=== PATIENT | male | born 1990 | race Caucasian/White ===

== ENCOUNTER 2024-08-06 12:31 | Inpatient (IN) | payer SELFPAY ==
[~2024-08-06] VITALS: Ht 167.6 cm; Wt 108.6 kg
[2024-08-06 12:36] VITALS: O2SAT 99
[2024-08-06] MEDS: NALOXONE HCL 0.4MG/ML 1ML VIAL IV ONE (13:55)
[2024-08-06 14:26] LABS: BASOPHILS % 0.1 % (0.0-2.0); EOSINOPHILS % 0.3 % (0.0-5.0); HEMATOCRIT. 44.5 % (42.0-52.0); HEMOGLOBIN. 14.4 g/dL (14.0-18.0); LYMPHOCYTES % 8.7 % (20.0-50.0); MEAN CORPUSCULAR HEMOGLOBIN 29.7 pg (28.0-32.0); MEAN CORPUSCULAR HGB CONC 32.3 g/dL (31.0-37.0); MEAN PLATELET VOLUME 8.2 fl (7.4-10.4); MONOCYTES % 4.9 % (2.0-8.0); PLATELET 278 x1000/uL (130-400); RED BLOOD CELL COUNT 4.84 mill/uL (4.7-6.1); RED CELL DISTRIBUTION WIDTH 13.5 % (11.6-14.6); WHITE BLOOD COUNT 14.9 x1000/uL (4.5-11.0)
[2024-08-06 14:39] LABS: CHLORIDE 104 mEq/L (98-107); POTASSIUM 5.3 mEq/L (3.5-5.1); SODIUM 137 mEq/L (136-145)
[2024-08-06 14:40] LABS: CALCIUM 9.3 mg/dL (8.7-10.4); CARBON DIOXIDE 28 mEq/L (21-32)
[2024-08-06 14:44] LABS: UREA NITROGEN BLOOD 15 mg/dL (9-23)
[2024-08-06 14:45] LABS: CREATININE 1.2 mg/dL (0.6-1.3); ETHANOL BLOOD < 10 mg/dL (<10); GLUCOSE 252 mg/dL (70-105)
[2024-08-06] MEDS: SODIUM CHLORIDE 0.9% 1,000 ML IV ONE (14:45)
[2024-08-06 14:46] LABS: ACETAMINOPHEN < 2 ug/mL (10-30)
[2024-08-06 14:47] LABS: ALANINE AMINOTRANSFERASE 523 IU/L (10-49); ALBUMIN 4.2 g/dL (3.2-4.8); ASPARTATE AMINOTRANSFERASE 426 IU/L (<34); BILIRUBIN DIRECT < 0.1 mg/dL (<=3.0); BILIRUBIN TOTAL 0.3 mg/dL (0.1-1.0); PROTEIN TOTAL 7.5 g/dL (6.0-8.3)
[2024-08-06 17:27] LABS: CLARITY URINE CLOUDY (CLEAR); COLOR URINE YELLOW (YELLOW); GLUCOSE URINE 1+ (NEGATIVE); KETONES URINE NEGATIVE (NEGATIVE); LEUKOCYTE ESTERASE URINE NEGATIVE (NEGATIVE); NITRITE URINE NEGATIVE (NEGATIVE); OCCULT BLOOD URINE 2+ (NEGATIVE); PH URINE 5.5 (4.5-8.0); PROTEIN URINE 2+ (NEGATIVE); SPECIFIC GRAVITY URINE 1.015 (1.005-1.030); UROBILINOGEN URINE 0.2 E.U./dL (0.2-1.0)
[2024-08-06 17:31] LABS: BACTERIA URINE 1+; RBC URINE 15-25 /hpf (0-2); SQUAMOUS EPITHELIAL CELL URINE NONE SEEN /lpf (RARE/1+); YEAST URINE NONE SEEN
[2024-08-06 17:32] LABS: WBC URINE 0-2 /hpf (0-2)
[2024-08-06 17:39] LABS: *AMPHETAMINES SCREEN URINE PRESUMPTIVE POSITIVE (NEGATIVE); *BARBITURATES SCREEN URINE NEGATIVE (NEGATIVE); *BENZODIAZEPINES SCREEN URINE NEGATIVE (NEGATIVE); *COCAINE SCREEN URINE NEGATIVE (NEGATIVE); METHADONE URINE SCREEN NEGATIVE (NEGATIVE); OPIATES URINE SCREEN NEGATIVE (NEGATIVE)
[2024-08-06 17:40] LABS: CANNABINOID URINE SCREEN NEGATIVE (NEGATIVE); ECSTASY MDMA SCREEN URINE CONF.TEST INDICATED (NEGATIVE); PHENCYCLIDINE URINE SCREEN NEGATIVE (NEGATIVE)
[2024-08-06 18:30] LABS: CARBON DIOXIDE 30 mEq/L (21-32); CHLORIDE 106 mEq/L (98-107); SODIUM 140 mEq/L (136-145)
[2024-08-06 18:36] LABS: CREATININE 0.9 mg/dL (0.6-1.3); GLUCOSE 117 mg/dL (70-105); UREA NITROGEN BLOOD 15 mg/dL (9-23)
[2024-08-07 04:08] LABS: BG BASE EXCESS -2.2 mmol/L (-2.0-3.0); BG DEOXYHEMOGLOBIN 5.2 % (0.0-5.0); BG FRACTION INSPIRED OXYGEN 32; BG HCO3 ACT 25.6 mmol/L (21.0-28.0); BG OXYGEN SATURATION 94.7 % (94.0-98.0); BG OXYHEMOGLOBIN 93.8 % (94.0-98.0); BG PH 7.278 (7.350-7.450); BG PO2 76.9 mmHg (83.0-108.0); BG SAMPLE SITE RIGHT RADIAL; BG TOTAL HEMOGLOBIN 15.3 g/dL (13.5-17.5); BG VENT MODE NASAL CANNULA
[2024-08-07 04:49] LABS: TROPONIN I HIGH SENSITIVITY 42 ng/L (3.0-53)
[2024-08-07 06:40] VITALS: BP 140/98; PULSE 95; RESP 14; TEMP 35.8; O2SAT 96
[2024-08-07 06:45] LABS: TROPONIN I HIGH SENSITIVITY 34 ng/L (3.0-53)
[2024-08-07 08:00] VITALS: BP 154/91; PULSE 96; RESP 19; TEMP 36.4; O2SAT 98
[2024-08-07 09:57] VITALS: BP 179/96; PULSE 96; RESP 19; TEMP 36.4
[2024-08-07] MEDS ORDERED: ONDANSETRON HCL 4MG/2ML INJ IV PRN (10:00)
[2024-08-07] MEDS ORDERED: ACETAMINOPHEN 325MG TABLET PO PRN (10:00)
[2024-08-07 12:00] VITALS: BP 162/89; PULSE 90; RESP 20; TEMP 36.7; O2SAT 98
[2024-08-07 14:57] LABS: HEPATITIS B SURFACE ANTIGEN NEGATIVE (Negative)
[2024-08-07 15:18] LABS: HEPATITIS C AB NON REACTIVE (Neg) (Negative)
== END 2024-08-07 14:12 | disposition left against medical advice (07) | DRG 812 ==
LOC: ER 12:31 → EDBEDREQ 08-07 04:31 → EDBEDREQTM 08-07 04:31 → 5WST 08-07 06:18
PROVIDERS: ADMIT Internal Medicine; ATTEND Internal Medicine
DX: T40.691A Poisoning by other narcotics, accidental (unintentional), initial encounter (principal); Z53.29 Procedure and treatment not carried out because of patient's decision for other reasons; Z63.4 Disappearance and death of family member; Y92.89 Other specified places as the place of occurrence of the external cause; Z78.1 Physical restraint status
CPT/HCPCS: 36415; 36600; 71045; 80048; 80076; 80305; 80307; 80320; 80329; 81003; 82375; 82805; 83880; 84484; 85025; 86705; 87340; 93005; 99285; J2310; J7030; G0480